=== PATIENT | female | born 1990 | race Hispanic/Latino ===

== ENCOUNTER 2023-01-04 22:21 | Inpatient (IN) | payer SELFPAY ==
[2023-01-04] MEDS ORDERED: NS w/ Oxytocin 30 units 500 ML ONE (22:42)
[2023-01-04] MEDS ORDERED: Lidocaine 1% (PF) 30 ML VIAL ONE (22:42)
[2023-01-04] MEDS ORDERED: Ibuprofen 800 MG TAB PO PRN (23:02)
[2023-01-04] MEDS ORDERED: Tranexamic Acid 1,000 MG/10 ML VIAL IVP PRN (23:02)
[2023-01-04] MEDS ORDERED: hydrALAZINE 20 MG/ML VIAL SLOW IVP PRN (23:02)
[2023-01-04] MEDS ORDERED: Misoprostol 200 MCG TAB PR PRN (23:02)
[2023-01-04] MEDS ORDERED: Ondansetron PF 4 MG/2 ML Vial IVP PRN (23:02)
[2023-01-04] MEDS ORDERED: Carboprost 250 MCG/ML AMP IM PRN (23:02)
[2023-01-04] MEDS ORDERED: Methylergonovine 0.2 MG/ML VIAL IM PRN (23:02)
[2023-01-04] MEDS ORDERED: Promethazine HCl 25 MG/ML VIAL IM PRN (23:02)
[2023-01-04] MEDS ORDERED: Lidocaine 1% (PF) 30 ML VIAL SC PRN (23:02)
[2023-01-04] MEDS ORDERED: HYDROcodone/Acetaminophen 5/325 mg Tablet PO PRN ×2 (23:02)
[2023-01-04] MEDS ORDERED: Diphenoxylate HCl/Atropine Tablet PO PRN ×2 (23:02)
[2023-01-04] MEDS ORDERED: fentaNYL 50 mcg/mL 1 mL Vial SLOW IVP PRN (23:02)
[2023-01-04 23:12] LABS: RapidComm Collect By CBN
[2023-01-04 23:13] LABS: RapidComm Collect By CBN
[2023-01-04] MEDS ORDERED: NS w/ Oxytocin 30 units 500 ML IV SCH (23:15)
[2023-01-04] MEDS ORDERED: Lactated Ringer's 1,000 ML IV SCH (23:15)
[2023-01-04 23:58] VITALS: BMI 24.0
[2023-01-05 00:49] LABS: Hemoglobin 12.3 g/dL (12.0-15.5); Mean Corpuscular HGB CONC 33.8 g/dL (32.0-36.0); Mean Corpuscular Volume 91.7 fl (81.6-98.3); Mean Platelet Volume 10.7 fl (7.4-10.4); Platelet Count 208 10x3/uL (150-450); RBC Distribution Width 12.6 % (11.5-14.5); Red Blood Cell (RBC) Count 3.97 10x6/uL (3.90-5.03); White Blood Cell (WBC) Count 14.9 10x3/uL (3.5-10.5)
[2023-01-05 01:01] LABS: Syphilis Antibody Nonreactive (Nonreactive); Syphilis Antibody Index 0.02 S/CO (<1.00 Non-Reactive)
[2023-01-05 01:03] LABS: HBSAg Index 0.17 S/CO (0-0.99); HIV (1/2) Antibody/Antigen Non-Reactive (NonReactive); HIV 1/2 INDEX 0.06 S/CO (<1.00); Hep B Surf Ag - L&D Non-Reactive S/CO (NonReactive)
[2023-01-05] MEDS ORDERED: Boostrix 0.5 ML (Tdap) VIAL (>/=7 yrs of age) IM ONE (02:19)
[2023-01-05] MEDS ORDERED: hydrALAZINE 20 MG/ML VIAL SLOW IVP PRN (02:19)
[2023-01-05] MEDS ORDERED: Benzocaine-Menthol 82.5 ML CAN TOP PRN (02:19)
[2023-01-05] MEDS ORDERED: HYDROcodone/Acetaminophen 5/325 mg Tablet PO PRN (02:19)
[2023-01-05] MEDS ORDERED: Milk Of Magnesia 30 ML UDCUP PO PRN (02:19)
[2023-01-05] MEDS ORDERED: Methylergonovine 0.2 MG/ML VIAL IM PRN (02:19)
[2023-01-05] MEDS ORDERED: NS w/ Oxytocin 30 units 500 ML IV SCH (02:19)
[2023-01-05] MEDS ORDERED: Misoprostol 200 MCG TAB VAG PRN (02:19)
[2023-01-05] MEDS ORDERED: Lanolin Ointment 7 GM TUBE TOP PRN (02:19)
[2023-01-05] MEDS ORDERED: Ondansetron PF 4 MG/2 ML Vial IVP PRN (02:19)
[2023-01-05] MEDS ORDERED: Bisacodyl 10 MG SUPP PR PRN (02:19)
[2023-01-05] MEDS: Ibuprofen 800 MG TAB PO SCH ×3 (06:28→21:30)
[2023-01-05] MEDS: Docusate 100 MG CAP PO SCH ×2 (09:07→21:30)
[2023-01-05] MEDS: Ferrous Sulfate 325 MG TAB PO SCH (18:08)
[2023-01-05] MEDS: Prenatal Vitamin 1 TAB PO SCH (18:23)
[2023-01-06] MEDS: Ibuprofen 800 MG TAB PO SCH ×2 (06:04→14:05)
[2023-01-06] MEDS: Prenatal Vitamin 1 TAB PO SCH (08:58)
[2023-01-06] MEDS: Docusate 100 MG CAP PO SCH (08:59)
[2023-01-06 09:30] VITALS: BP 112/54; TEMP 97.5
== END 2023-01-06 18:45 | disposition home or self-care (01) | DRG 807 ==
LOC: CSHLD/OP 22:21 → CSHLD 23:04 → CSHPP 01-05 01:49
PROVIDERS: ADMIT Obstetrics & Gynecology; ATTEND Obstetrics & Gynecology
PROC: 10E0XZZ Delivery of Products of Conception, External Approach (ICD-10-PCS; principal; 2023-01-04)
PROC: 4A133R1 Monitoring of Arterial Saturation, Peripheral, Percutaneous Approach (ICD-10-PCS; 2023-01-04)
DX: O60.14X0 Preterm labor third trimester with preterm delivery third trimester, not applicable or unspecified (principal); Z37.0 Single live birth; Z3A.33 33 weeks gestation of pregnancy; O76 Abnormality in fetal heart rate and rhythm complicating labor and delivery; O42.013 Preterm premature rupture of membranes, onset of labor within 24 hours of rupture, third trimester; O62.3 Precipitate labor
CPT/HCPCS: 36415; 82805; 85027; 86762; 86780; 86850; 86900; 86901; 87340; 87389; 88307; 99285; J2001; J2590